=== PATIENT | female | born 1970 | race Hispanic/Latino ===

== ENCOUNTER 2018-02-09 13:31 | Emergency (ER) | payer BC, OTHER ==
--- OUTSIDE RECORDS SUMMARY | 2018-02-09 13:34 | XMS REPORT | Clinical Summary ---
:1970 Author Organization [facility] Address [address] [place] [address] Care Team Providers Name Role Phone Asked, No Pcp Primary Care Provider Unavailable Allergies No Known Allergies Current Medications Not on file Active Problems Not on file Encounters Date Type Specialty Care Team Description 06/05/2017 - Emergency Emergency Medicine Latisha Myers Alcohol abuse ( Primary 06/06/2017 MD Lucretia Dx) after 02/08/2017 Social History Tobacco Use Types Packs/Day Years Used Date Current Every Day Smoker Alcohol Use Drinks/Week oz/Week Comments Yes Sex Assigned at Date Recorded Not on file Last Filed Vital Signs Vital Sign Reading Time Taken Blood Pressure 114/63 06/06/2017 4:30 AM CDT Pulse 74 06/06/2017 4:30 AM CDT Temperature 36.7 C (98 F) 06/06/2017 4:30 AM CDT Respiratory Rate 18 06/06/2017 4:30 AM CDT Oxygen Saturation 96% 06/06/2017 4:30 AM CDT Inhaled Oxygen Concentration - - Weight - - Height 165.1 cm (5' 5") 06/05/2017 11:00 PM CDT Body Mass Index - - Plan of Treatment Health Maintenance Due Date Last Done Comments CERVICAL CANCER SCREENING 1990 INFLUENZA VACCINE 04/07/2018 Results XR Chest 1 Vw Portable (06/06/2017 1:14 AM) Specimen Performing Laboratory [facility] [address] [place] [address] Narrative EXAMINATION: XR CHEST 1 VW PORTABLE CLINICAL HISTORY: Emesis s p inebriation COMPARISON:None. IMPRESSION: The lungs are clear. No pleural effusion or pneumothorax. The cardiomediastinal silhouette is normal. No acute osseous abnormalities. [facility]-[id number] Procedure Note Interface, Radiology Results Incoming - 06/06/2017 1:19 AM CDT EXAMINATION: XR CHEST 1 VW PORTABLE CLINICAL HISTORY: Emesis s p inebriation COMPARISON: None. IMPRESSION: The lungs are clear. No pleural effusion or pneumothorax. The cardiomediastinal silhouette is normal. No acute osseous abnormalities. [facility]-[id number] Estimated GFR (06/05/2017 11:29 PM) Component Value Ref Range GFR Non Af Amer 67 mL/min/1.73 m2 GFR Af Amer 81 mL/min/1.73 m2 Comment: Chronic kidney disease: <60 mL/min/1.73m2 Kidney failure: <15 mL/min/1.73m2 The estimated GFR is calculated from the IDMS-traceable Modification of Diet in Renal Disease Equation. The accuracy of the calculation is poor when the creatinine is normal. Calculated values >90 mL/min/1.73m2 are not reported. This equation has not been validated in children (<18 years), women, the elderly (>70 years), or ethnic groups other than Caucasians and Americans. Specimen Performing Laboratory Plasma specimen [facility] [employer] [facility] [address] [place] [address] CBC with platelet and differential (06/05/2017 11:29 PM) Component Value Ref Range WBC 7.57 4.50 - 11.00 k/uL RBC 3.90 (L) 4.20 - 5.50 m/uL HGB 11.0 (L) 12.0 - 16.0 g/dL HCT 34.4 (L) 37.0 - 47.0 % MCV 88.2 82.0 - 100.0 fL MCH 28.2 27.0 - 34.0 pg MCHC 32.0 31.0 - 37.0 g/dL RDW - SD 43.4 37.0 - 55.0 fL MPV 10.4 8.8 - 13.2 fL Platelet count 296 150 - 400 k/uL Neutrophils 61.3 39.0 - 69.0 % Lymphocytes 21.9 (L) 25.0 - 45.0 % Monocytes 7.1 0.0 - 10.0 % Eosinophils 8.5 (H) 0.0 - 5.0 % Basophils 0.5 0.0 - 1.0 % Immature granulocytes 0.7 0.0 - 1.0 % Specimen Performing Laboratory Blood [facility] [employer] [facility] [address] [place] [address] Alcohol level, blood (06/05/2017 11:29 PM) Component Value Ref Range Alcohol 212.3 (HH) mg/dL Comment: Normal None Detected Legal Intoxication in [place]80 mg/dL (0.08%) - Whole Blood Toxic Qcyhotjubtbye732 mg/dL (0.2%) Potentially Onyrz884 - 500 mg/dL (0.35 - 0.5%) ALC results called to and read back by ANDRADE REED /TEMI 06/06/201701:58 by NS. Alcohol percent 0.212 (HH) % Specimen Performing Laboratory Plasma specimen [facility] [address] [place] [address] Comprehensive metabolic panel (06/05/2017 11:29 PM) Component Value Ref Range Sodium 141 135 - 148 mEq/L Potassium 3.7 3.5 - 5.0 mEq/L Chloride 105 99 - 109 mEq/L CO2 21 (L) 24 - 31 mEq/L Anion gap 15 7 - 15 mEq/L Comment: Starting from December , anion gap calculation no longer incorporates potassium. Please note the change. BUN 18 8 - 24 mg/dL Creatinine 0.9 0.5 - 1.5 mg/dL Glucose 100 (H) 65 - 99 mg/dL Calcium 8.4 (L) 8.6 - 10.6 mg/dL Protein 6.8 6.3 - 8.2 g/dL Albumin 3.6 3.5 - 5.0 g/dL A/G ratio 1.1 0.7 - 3.8 Alkaline phosphatase 58 30 - 115 U/L AST 21 15 - 46 U/L ALT 16 10 - 55 U/L Total bilirubin <0.3 0.2 - 1.2 mg/dL Specimen Performing Laboratory Plasma specimen [facility] [address] [place] [address] after 02/08/2017 Insurance Payer Benefit Plan / Group Subscriber ID Type Phone Address [facility] CHOICE/CHOICE + xxxxxxxxx HMO/PPO Home: [id number] [phone] [place] [id number]
--- NOTE | 2018-02-09 15:18 | ER ---
Nurse's Notes [facility] Name: Trudi Richmond Age: 47 yrs Sex: Female : 1970 Arrival Date: 02/09/2018 Time: 13:36 Bed 20 Private MD: Out, [facility] Diagnosis: Benign paroxysmal vertigo Presentation: 02/09 13:37 Presenting complaint: Patient states: nausea and dizziness that began Thursday. Pt denies aa5 vomiting. Transition of care: patient was not received from another setting of care. Onset of symptoms was February 2018. Risk Assessment: Do you want to hurt yourself or someone else? Patient reports no desire to harm self or others. Initial Sepsis Screen: Does the patient meet any 2 criteria? No. Patient's initial sepsis screen is negative. Does the patient have a suspected source of infection? No. Patient's initial sepsis screen is negative. Care prior to arrival: None. 13:37 Method Of Arrival: Ambulatory aa5 13:37 Acuity: GIOVANNA 3 aa5 Triage Assessment: 15:33 GI: Reports. 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 - Social history:: Smoking status: Patient uses tobacco products, 2-3 cigarettes a day . - Ebola Screening: : No symptoms or risks identified at this time. Screenin:00 Abuse screen: Denies threats or abuse. Denies injuries from another. Nutritional jl7 screening: No deficits noted. Tuberculosis screening: No symptoms or risk factors identified. Fall Risk None identified. Assessment: 14:00 General: Appears in no apparent distress. uncomfortable, Behavior is calm, cooperative, jl7 appropriate for age. Pain: Complains of pain in forehead Pain does not radiate. Pain currently is 4 out of 10 on a pain scale. Quality of pain is described as pressure, Pain began 2-3 days ago. Neuro: Level of Consciousness is awake, alert, obeys commands, Oriented to person, place, time, situation, Tv Host are equal bilaterally Moves all extremities. Gait is steady, Speech is normal, Facial symmetry appears normal, Pupils are PERRLA. Cardiovascular: Heart tones S1 S2 present Patient's skin is warm and dry. Respiratory: Airway is patent Respiratory effort is even, unlabored, Respiratory pattern is regular, symmetrical, Breath sounds are clear bilaterally. GI: Abdomen is round non-distended, Bowel sounds present X 4 quads. : No signs and/or symptoms were reported regarding the genitourinary system. EENT: No signs and/or symptoms were reported regarding the EENT system. Derm: Skin is pink, warm \T\ dry. Musculoskeletal: No signs and/or symptoms reported regarding the musculoskeletal system. 15:00 Reassessment: No changes from previously documented assessment. Patient and/or family jl7 updated on plan of care and expected duration. Pain level reassessed. Patient is alert, oriented x 3, equal unlabored respirations, skin warm/dry/pink. Vital Signs: 13:39 BP 124 / 86; Pulse 78; Resp 18 S; Temp 97.7(TE); Pulse Ox 96% on R/A; Weight 90.72 kg aa5 (R); Height 5 ft. 4 in. (162.56 cm) (R); Pain 0/10; 15:00 BP 126 / 85; Pulse 76; Resp 16; Pulse Ox 98% ; jl7 13:39 Body Mass Index 34.33 (90.72 kg, 162.56 cm) aa5 ED Course: 13:36 Patient arrived in ED. sb2 13:37 Out, [facility] is Private Physician. sb2 13:38 Triage completed. aa5 13:38 Arm band placed on. aa5 13:47 Nadeem Dewey, RN is Primary Nurse. jl7 13:53 Shahram Black MD is Attending Physician. gs 14:00 Patient has correct armband on for positive identification. Bed in low position. Call jl7 light in reach. Side rails up X 1. parts sales manager on. Pulse ox on. NIBP on. Warm blanket given. 15:33 No provider procedures requiring assistance completed. Patient did not have IV access jl7 during this emergency room visit. Administered Medications: No medications were administered Outcome: 15:17 Discharge ordered by . gs 15:33 Discharged to home ambulatory, with family. jl7 15:33 Condition: stable 15:33 Discharge instructions given to patient, family, Instructed on discharge instructions, follow up and referral plans. medication usage, Demonstrated understanding of instructions, follow-up care, medications, Prescriptions given X 1. 15:35 Patient left the ED. jl7 Signatures: Irma Kirk RN RN aa5 Nadeem Dewey RN RN jl7 Shahram Black MD MD Analy Arriaga sb2
--- NOTE | 2018-02-09 15:18 | EDPHYS ---
Physician Documentation [facility] Name: Trudi Richmond Age: 47 yrs Sex: Female : 1970 Arrival Date: 02/09/2018 Time: 13:36 Bed 20 Private MD: Out, [facility] ED Physician Shahram Black HPI: 02/09 14:53 This 47 yrs old Female presents to ER via Ambulatory with complaints of gs Nausea, Dizziness. 14:56 The patient presents with sense of spinning, vertigo. Onset: The symptoms/episode gs began/occurred 3 day(s) ago. Context: occurred at home. Modifying factors: the symptoms are aggravated by movement of head, standing up, changing position. Associated signs and symptoms: Pertinent positives: uri, Pertinent negatives: agitation, syncope. Severity of symptoms: At their worst the symptoms were moderate in the emergency department the symptoms are unchanged. 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 - Social history:: Smoking status: Patient uses tobacco products, 2-3 cigarettes a day . - Ebola Screening: : No symptoms or risks identified at this time. ROS: 15:11 All other systems are negative. gs 15:18 Abdomen/GI: Positive for nausea. gs Exam: 15:11 Head/Face: Normocephalic, atraumatic. Eyes: Pupils equal round and reactive to light, gs extra-ocular motions intact. Lids and lashes normal. Conjunctiva and sclera are non-icteric and not injected. Cornea within normal limits. Periorbital areas with no swelling, redness, or edema. Neck: Trachea midline, no thyromegaly or masses palpated, and no cervical lymphadenopathy. Supple, full range of motion without nuchal rigidity, or vertebral point tenderness. No Meningismus. Chest/axilla: Normal chest wall appearance and motion. Nontender with no deformity. No lesions are appreciated. Cardiovascular: Regular rate and rhythm with a normal S1 and S2. No gallops, murmurs, or rubs. Normal PMI, no JVD. No pulse deficits. Respiratory: Lungs have equal breath sounds bilaterally, clear to auscultation and percussion. No rales, rhonchi or wheezes noted. No increased work of breathing, no retractions or nasal flaring. Abdomen/GI: Soft, non-tender, with normal bowel sounds. No distension or tympany. No guarding or rebound. No evidence of tenderness throughout. Back: No spinal tenderness. No costovertebral tenderness. Full range of motion. Skin: Warm, dry with normal turgor. Normal color with no rashes, no lesions, and no evidence of cellulitis. MS/ Extremity: Pulses equal, no cyanosis. Neurovascular intact. Full, normal range of motion. 15:11 Constitutional: The patient appears alert, awake. 15:11 Neuro: Cranial nerves: grossly normal, Nystagmus is absent. Cerebellar function: normal finger to nose testing, heel to braga testing is normal, Motor: is normal, Sensation: is normal, Gait: is steady. 15:11 ENT: TM's: dullness, fluid levels, bilaterally. Vital Signs: 13:39 BP 124 / 86; Pulse 78; Resp 18 S; Temp 97.7(TE); Pulse Ox 96% on R/A; Weight 90.72 kg aa5 (R); Height 5 ft. 4 in. (162.56 cm) (R); Pain 0/10; 15:00 BP 126 / 85; Pulse 76; Resp 16; Pulse Ox 98% ; jl7 13:39 Body Mass Index 34.33 (90.72 kg, 162.56 cm) aa5 MDM: 14:36 Patient medically screened. 15:11 Differential diagnosis: idiopathic dizziness, vertigo. Data reviewed: vital signs, nurses notes. 02/09 14:36 Order name: Urine Dipstick--Ancillary (enter results) bd Administered Medications: No medications were administered Disposition: 02/09/18 15:17 Discharged to Home. Impression: Benign paroxysmal vertigo. - Condition is Stable. - Discharge Instructions: Benign Positional Vertigo. - Prescriptions for Antivert 25 mg Oral Tablet - take 1 tablet by ORAL route every 8 hours As needed; 20 tablet. - Work release form, Medication Reconciliation Form, Thank You Letter, Antibiotic Education, Prescription Opioid Use form. - Follow up: Private Physician; When: 2 - 3 days; Reason: Re-evaluation by your physician. Signatures: Dispatcher [employer] EDMS Irma Kirk, RN RN aa5 Nadeem Dewey RN RN jl7 Shahram Black MD MD gs Corrections: (The following items were deleted from the chart) 15:35 15:17 02/09/2018 15:17 Discharged to Home. Impression: Benign paroxysmal vertigo. jl7 Condition is Stable. Forms are Medication Reconciliation Form, Thank You Letter, Antibiotic Education, Prescription Opioid Use. Follow up: Private Physician; When: 2 - 3 days; Reason: Re-evaluation by your physician. gs
[2018-02-09 17:03] LABS: Urine Blood TRACE (NEG); Urine Glucose NEGATIVE (NEG); Urine Protein NEGATIVE (NEG); Urine Specific Gravity 1.015 (1.005-1.030); Urine pH 8.5 (5.0-7.0)
== END 2018-02-09 15:35 | disposition home or self-care (01) ==
LOC: ER 13:31
DX: H81.10 Benign paroxysmal vertigo, unspecified ear (principal); F17.210 Nicotine dependence, cigarettes, uncomplicated; Z88.6 Allergy status to analgesic agent
CPT/HCPCS: 81003; 99284

== ENCOUNTER 2019-05-05 08:08 | Day surgery (SDC) | payer BC ==
--- OUTSIDE RECORDS SUMMARY | 2019-05-05 08:11 | XMS REPORT | Clinical Summary ---
:1970 Author Organization [facility] Address [address] [place] [id number] Care Team Providers Name Role Phone Asked, No Pcp Primary Care Provider Unavailable Allergies No Known Allergies Medications Not on file Active Problems Not on file Social History Tobacco Use Types Packs/Day Years Used Date Current Every Day Smoker Alcohol Use Drinks/Week oz/Week Comments Yes Sex Assigned at Date Recorded Not on file Job Start Date Occupation Industry Not on file Not on file Not on file Travel History Travel Start Travel End No recent travel history available. Last Filed Vital Signs Not on file Plan of Treatment Health Maintenance Due Date Last Done Comments CERVICAL CANCER SCREENING 1990 INFLUENZA VACCINE 04/07/2019 Results Not on fileafter 05/04/2018 Cesar snider (Home) [place] [id number] Advance Directives For more information, please contact: [phone] Type Date Recorded Patient Manager Store Explanation Advance Directives, Living Will and Medical Power of Senior [employer] Developer
[2019-05-05] MEDS ORDERED: Ringers Lactate 1,000 ML IV ONE (08:15)
[2019-05-05 08:31] LABS: Specific Gravity 1.015 (1.005-1.030)
[2019-05-05] MEDS ORDERED: ACETIC ACID 0.25% IRRIG ONE (08:44)
[2019-05-05] MEDS ORDERED: STRONG IODINE SOLN 15 ML BTL TOP ONE (08:44)
[2019-05-05] MEDS ORDERED: PROPOFOL 200 MG/20 ML VIAL IV ONE ×3 (09:11→13:01)
[2019-05-05] MEDS ORDERED: FENTANYL CITR 100 MCG/2 ML ONE ×3 (09:12→13:02)
[2019-05-05] MEDS ORDERED: LIDOCAINE 1% MPF 2 ML AMPULE ONE (09:13)
[2019-05-05] MEDS ORDERED: MIDAZOLAM HCL 2 MG/2 ML INJ ONE ×3 (09:13→13:01)
[2019-05-05] MEDS ORDERED: LIDOCAINE 1% MPF 5 ML VIAL ONE (09:22)
[2019-05-05] MEDS ORDERED: LIDOCAINE 1% W/EPI 1:100,000 MDV 20 ML VIAL ONE (09:26)
[2019-05-05] MEDS ORDERED: ROCURONIUM 50 MG/5 ML VIAL IV ONE (09:43)
[2019-05-05] MEDS ORDERED: ONDANSETRON 4 MG/2 ML VIAL ONE ×2 (09:44→09:58)
[2019-05-05] MEDS ORDERED: LIDOCAINE 2% MPF 5 ML VIAL ONE ×2 (09:44→13:06)
[2019-05-05] MEDS ORDERED: KETOROLAC 30 MG/ML INJ ONE (09:58)
[2019-05-05] MEDS ORDERED: HYDROCODONE/APAP 5/325 MG TAB ONE (11:28)
--- NOTE | 2019-05-05 12:13 | OP ---
Date of Procedure: 05/05/2019 Surgeon: Tuyet Brower MD Preoperative Diagnoses: Cervical mass, menorrhagia, thickened endometrium. Postoperative Diagnoses: Cervical mass, menorrhagia, thickened endometrium and upper cervical/lower uterine mass, polyp, thickened posterior wall endometrium. Procedures Performed: 1.Cervical colposcopy. 2.Diagnostic hysteroscopy converted to operative hysteroscopy, polypectomy, and dilation and curetta ge. Anesthesia: MAC plus paracervical block. Specimens: Endometrial curettings, endometrial polyp, cervical mass. Complications: No complications. Drains: None. Condition: Stable. Findings: Lower cervical/uterine canal with a mass polyp. Endometrial curettings were performed on the thickened posterior wall as well as the entire global endometrial canal. Procedure In Detail: After informed consent was verified, patient was brought to the OR. She was pl aced in a supine fashion on the operating table. After MAC was given, she was placed in dorsal litho lara position. Speculum placed to expose the cervix. Colposcopy was performed. The polyp appeared to be in the canal. The colposcopy was negative. Then, the cervical mass was grasped with ring forc eps and twisted and removed. Then, hysteroscopy was performed, 1% lidocaine mixed with 1:100,000 epi nephrine, 10 cc at 12 o'clock and 5 cc each at 4 and 8 o'clock positions at the cervicovaginal juncti on was given, prep x2 with Betadine was done. SlimLine diagnostic hysteroscope was used to enter the cervical canal under direct visualization. Uterine cavity was visualized. Both tubal ostia were vi sualized. Posterior endometrium was significantly thickened and the base of this mass that was remov ed was in the lower part of the endometrial canal at the level of the internal os. The scope was the n changed to an operative channel and then using the scissors, the base of the mass was cut and compl etely detached and removed and the specimen was retrieved with the polyp forceps. Then, curettage was performed with a large endometrial #4 endometrial curette. Adequate sampling was performed. All specimens were handed off for permanent pathology. The instruments were removed. I nstrument, needle and sponge counts were correct at the end of the case. Patient tolerated the proce dure well. EBL was minimal. She will follow up with me in 1 week per her prior appointment. HAYLEY/LORI Voice ID: [id number] Report ID: [id number]
== END 2019-05-05 12:10 | disposition home or self-care (01) ==
LOC: OR 08:08
PROVIDERS: ATTEND Obstetrics & Gynecology
PROC: 0UJD8ZZ Inspection of Uterus and Cervix, Via Natural or Artificial Opening Endoscopic (ICD-10-PCS; 2019-05-05)
PROC: 0UJH8ZZ Inspection of Vagina and Cul-de-sac, Via Natural or Artificial Opening Endoscopic (ICD-10-PCS; 2019-05-05)
PROC: 0UB97ZX Excision of Uterus, Via Natural or Artificial Opening, Diagnostic (ICD-10-PCS; principal; 2019-05-05 09:30)
PROC: 0UDB7ZX Extraction of Endometrium, Via Natural or Artificial Opening, Diagnostic (ICD-10-PCS; 2019-05-05 09:30)
DX: N92.1 Excessive and frequent menstruation with irregular cycle (principal); N84.0 Polyp of corpus uteri; N95.1 Menopausal and female climacteric states
CPT/HCPCS: 81025; 88305; 58558; 57452; J2704; J2250; J3010; J2405 ×2; J2001